=== PATIENT | female | born 1950 | race Asian ===

== ENCOUNTER 2019-01-17 11:26 | Day surgery (SDC) | payer MEDICARE, MEDICAID ==
[~2019-01-17] VITALS: Ht 152.4 cm; Wt 61.4 kg
[~2019-01-17 11:26] MED LIST: CYAN1TAB44 PO; HEPARIN SODIUM 1000 UNITS/NS 500 ML ONE; LABE100T5 PO; LIDOCAINE/PF 1% 30 ML VIAL ONE; LOVA20 PO; NIFE30TA10 PO; SODIUM CHLORIDE 0.9% 1,000 ML IV ONE
[2019-01-17 11:56] LABS: BASOPHILS % (AUTO) 0.9 % (0.0-2.0); EOSINOPHILS % (AUTO) 2.8 % (1.0-6.0); HEMATOCRIT 34.2 % (36-46); HEMOGLOBIN 11.3 g/dL (12.0-16.0); LYMPHOCYTES # (AUTO) 1.2 K/uL (1.0-4.8); LYMPHOCYTES % (AUTO) 22.3 % (22.0-44.0); MEAN CORPUSCULAR HEMOGLOBIN 31.4 pg (26.0-34.0); MEAN CORPUSCULAR HGB CONC 33.2 G/dL (31.0-37.0); MEAN CORPUSCULAR VOLUME 95 fL (80-100); MONOCYTES # (AUTO) 0.4 K/uL (0.1-1.0); MONOCYTES % (AUTO) 6.6 % (2.0-9.0); NEUTROPHILS # (AUTO) 3.6 K/uL (1.8-7.7); NEUTROPHILS % (AUTO) 67.4 % (40.0-70.0); PLATELET COUNT (AUTO) 296 K/uL (150-450); RED BLOOD CELL COUNT(AUTO) 3.62 MIL/uL (4.00-5.20)
[2019-01-17] MEDS ORDERED: SODIUM CHLORIDE 0.9% 1,000 ML IV ONE (12:00)
[2019-01-17 12:06] LABS: CALCIUM, TOTAL 8.7 mg/dL (8.8-10.5); CREATININE 4.68 mg/dL (0.60-1.30)
[2019-01-17 12:12] LABS: ALBUMIN 3.5 g/dL (3.4-5.0); BILIRUBIN,TOTAL 0.6 mg/dL (0.1-1.0); TOTAL PROTEIN, SERUM 7.3 g/dL (6.4-8.2)
== END 2019-01-17 14:35 | disposition home or self-care (01) ==
LOC: SURGERY 11:26
PROVIDERS: ATTEND Surgery
DX: I12.0 Hypertensive chronic kidney disease with stage 5 chronic kidney disease or end stage renal disease (principal); Z53.8 Procedure and treatment not carried out for other reasons; N18.5 Chronic kidney disease, stage 5; E78.00 Pure hypercholesterolemia, unspecified; D64.9 Anemia, unspecified; M19.90 Unspecified osteoarthritis, unspecified site; Z90.710 Acquired absence of both cervix and uterus; Z98.890 Other specified postprocedural states
CPT/HCPCS: 36415; 80053; 85025; 85610; 93005; J1644; J3490; J7030

== ENCOUNTER 2023-04-22 15:42 | Inpatient (IN) | payer MEDICARE, MEDICAID ==
[~2023-04-22] VITALS: Ht 154.9 cm; Wt 65.1 kg
[~2023-04-22 15:42] MED LIST changes: +ATOR20TA PO; +CHOL200059 PO; -CYAN1TAB44 PO; +FERR325T27 PO; -HEPARIN SODIUM 1000 UNITS/NS 500 ML ONE; +HYDR25TA84 PO; -LABE100T5 PO; +LABE100T8 PO; +LEVO-72 PO; -LIDOCAINE/PF 1% 30 ML VIAL ONE; -LOVA20 PO; +SEVE800 PO; -SODIUM CHLORIDE 0.9% 1,000 ML IV ONE
[2023-04-22 16:23] LABS: BASOPHILS % (AUTO) 0.5 % (0.0-2.0); EOSINOPHILS % (AUTO) 0.5 % (1.0-6.0); HEMATOCRIT 31.2 % (36-46); HEMOGLOBIN 10.3 g/dL (12.0-16.0); LYMPHOCYTES # (AUTO) 0.5 K/uL (1.0-4.8); LYMPHOCYTES % (AUTO) 5.8 % (22.0-44.0); MEAN CORPUSCULAR HEMOGLOBIN 32.7 pg (26.0-34.0); MEAN CORPUSCULAR VOLUME 99 fL (80-100); MONOCYTES # (AUTO) 0.7 K/uL (0.1-1.0); MONOCYTES % (AUTO) 7.5 % (2.0-9.0); NEUTROPHILS # (AUTO) 7.6 K/uL (1.8-7.7); PLATELET COUNT (AUTO) 189 K/uL (150-450); RED BLOOD CELL COUNT(AUTO) 3.15 MIL/uL (4.00-5.20); RED CELL DISTRIBUTION WIDTH 13.9 % (11.5-14.5); WHITE BLOOD COUNT (AUTO) 8.8 K/uL (4.5-11.0)
[2023-04-22 16:28] LABS: NEUTROPHILS % (AUTO) 85.7 % (40.0-70.0)
[2023-04-22 16:40] LABS: CALCIUM, TOTAL 9.2 mg/dL (8.8-10.5); CREATININE 4.11 mg/dL (0.60-1.30); POTASSIUM 3.5 mmol/L (3.5-5.1); PROTHROMBIN TIME 10.2 SEC (9.4-11.6)
[2023-04-22 16:56] LABS: TROPONIN I-HIGH SENSITIVITY 52 ng/L (<51)
[2023-04-22 17:04] LABS: ALBUMIN 3.2 g/dL (3.4-5.0); BILIRUBIN,TOTAL 0.5 mg/dL (0.1-1.0); TOTAL PROTEIN, SERUM 6.6 g/dL (6.4-8.2)
[2023-04-22] MEDS ORDERED: LOSA-382 PO (18:47)
[2023-04-22] MEDS ORDERED: SUCR500T PO (18:47)
[2023-04-22] MEDS ORDERED: ASPIRIN 81 MG CHEWABLE TABLET PO ONE (19:45)
[2023-04-22] MEDS ORDERED: ATORVASTATIN CALCIUM 40 MG TABLET PO ONE (19:45)
[2023-04-22] MEDS ORDERED: NITROGLYCERIN 0.4 MG SUBLINGUAL TABLET #25 SL PRN (19:45)
[2023-04-22] MEDS ORDERED: BUMETANIDE 0.25 MG/ML 4 ML VIAL IVP ONE (19:45)
[2023-04-22 20:23] LABS: APPEARANCE,URINE HAZY (CLEAR); BILIRUBIN,URINE NEGATIVE (NEGATIVE); COLOR,URINE LIGHT YELLOW (YELLOW); GLUCOSE, URINE (UA) TRACE mg/dL (NEGATIVE); KETONES,URINE NEGATIVE (NEGATIVE); LEUKOCYTE ESTERASE ,URINE LARGE (NEGATIVE); NITRATE,URINE POSITIVE (NEGATIVE); OCCULT BLOOD,URINE SMALL (NEGATIVE); PROTEIN,URINE 300-600,SEE CONFIRM mg/dL (NEGATIVE); SPECIFIC GRAVITIY, URINE 1.009 (1.003-1.030); UROBILINOGEN,URINE <=1.0 mg/dL (<=1.0)
[2023-04-22 20:45] LABS: TROPONIN I-HIGH SENSITIVITY 838 ng/L (<51)
[2023-04-22 20:47] LABS: SULFOSALICYLIC ACID,URINE 4+ (Negative)
[2023-04-22 20:48] LABS: RBC,URINE 0-2 /HPF (0-2)
[2023-04-22 20:49] LABS: WBC,URINE >100 /HPF (0-5)
[2023-04-22 20:50] LABS: BACTERIA,URINE Few /HPF (None Seen)
[2023-04-22] MEDS ORDERED: NIFEdipine 60 MG ER TABLET PO SCH (21:00)
[2023-04-22] MEDS ORDERED: LABETALOL HCL 100 MG TABLET PO SCH (21:00)
[2023-04-22] MEDS ORDERED: HEPARIN SODIUM 25000 UNITS/D5W 250 ML IV PRN (21:15)
[2023-04-22] MEDS ORDERED: ONDANSETRON HCL 4 MG/2 ML VIAL IVP PRN (21:15)
[2023-04-22] MEDS ORDERED: ACETAMINOPHEN 325 MG TABLET PO PRN (21:15)
[2023-04-22] MEDS ORDERED: HEPARIN SODIUM,PORCINE 5,000 UNITS/ML VIAL IVP PRN ×2 (21:15)
[2023-04-22] MEDS ORDERED: HEPARIN SODIUM,PORCINE 5,000 UNITS/ML VIAL IVP ONE (21:15)
[2023-04-22 21:18] VITALS: BP 139/56; PULSE 79; RESP 18; TEMP 98.4
[2023-04-22 21:48] LABS: BASOPHILS % (AUTO) 0.5 % (0.0-2.0); EOSINOPHILS % (AUTO) 0.9 % (1.0-6.0); HEMATOCRIT 32.3 % (36-46); HEMOGLOBIN 10.5 g/dL (12.0-16.0); LYMPHOCYTES # (AUTO) 0.8 K/uL (1.0-4.8); MEAN CORPUSCULAR HEMOGLOBIN 32.4 pg (26.0-34.0); MEAN CORPUSCULAR HGB CONC 32.5 G/dL (31.0-37.0); MEAN CORPUSCULAR VOLUME 100 fL (80-100); MONOCYTES # (AUTO) 0.5 K/uL (0.1-1.0); MONOCYTES % (AUTO) 6.2 % (2.0-9.0); NEUTROPHILS # (AUTO) 6.9 K/uL (1.8-7.7); NEUTROPHILS % (AUTO) 82.4 % (40.0-70.0); PLATELET COUNT (AUTO) 189 K/uL (150-450); RED BLOOD CELL COUNT(AUTO) 3.24 MIL/uL (4.00-5.20); WHITE BLOOD COUNT (AUTO) 8.3 K/uL (4.5-11.0)
[2023-04-22 22:05] LABS: PROTHROMBIN TIME 10.5 SEC (9.4-11.6)
[2023-04-22] MEDS: HydrALAZINE HCL 50 MG TABLET PO SCH (22:41)
[2023-04-22] MEDS ORDERED: SODIUM CHLORIDE 0.9% 1,000 ML ONE (23:28)
[2023-04-22] MEDS: CefTRIAXone 1 GM/DEXTROSE 50 ML IV SCH (23:31)
[2023-04-23 02:00] VITALS: BP 118/52; PULSE 70; RESP 18; TEMP 98.3
[2023-04-23 03:13] LABS: TROPONIN I-HIGH SENSITIVITY 1986 ng/L (<51)
[2023-04-23 05:58] VITALS: BP 121/52; PULSE 68; RESP 18; TEMP 98.3
[2023-04-23 06:30] LABS: BASOPHILS % (AUTO) 0.9 % (0.0-2.0); EOSINOPHILS % (AUTO) 2.7 % (1.0-6.0); HEMATOCRIT 29.5 % (36-46); HEMOGLOBIN 9.7 g/dL (12.0-16.0); LYMPHOCYTES # (AUTO) 1.2 K/uL (1.0-4.8); LYMPHOCYTES % (AUTO) 17.8 % (22.0-44.0); MEAN CORPUSCULAR HEMOGLOBIN 32.7 pg (26.0-34.0); MEAN CORPUSCULAR HGB CONC 32.8 G/dL (31.0-37.0); MEAN CORPUSCULAR VOLUME 100 fL (80-100); MONOCYTES # (AUTO) 0.5 K/uL (0.1-1.0); MONOCYTES % (AUTO) 7.9 % (2.0-9.0); NEUTROPHILS # (AUTO) 4.9 K/uL (1.8-7.7); NEUTROPHILS % (AUTO) 70.7 % (40.0-70.0); PLATELET COUNT (AUTO) 191 K/uL (150-450); RED BLOOD CELL COUNT(AUTO) 2.97 MIL/uL (4.00-5.20); WHITE BLOOD COUNT (AUTO) 6.9 K/uL (4.5-11.0)
[2023-04-23 07:40] VITALS: BP 136/55; PULSE 76; RESP 18; TEMP 98
[2023-04-23] MEDS: HydrALAZINE HCL 50 MG TABLET PO SCH ×3 (08:17→21:15)
[2023-04-23] MEDS: ASPIRIN 81 MG CHEWABLE TABLET PO SCH (08:17)
[2023-04-23] MEDS: LOSARTAN POTASSIUM 50 MG TABLET PO SCH (08:17)
[2023-04-23] MEDS: DOCUSATE SODIUM 100 MG CAPSULE PO SCH ×2 (08:17→21:14)
[2023-04-23 11:03] VITALS: BP 130/48; PULSE 75; RESP 19; TEMP 97.9
[2023-04-23 15:12] VITALS: BP 116/48; PULSE 74; RESP 18; TEMP 98.1
[2023-04-23 17:29] LABS: TROPONIN I-HIGH SENSITIVITY 1013 ng/L (<51)
[2023-04-23 20:19] VITALS: BP 131/42; PULSE 78; RESP 18; TEMP 98
[2023-04-23] MEDS ORDERED: ATORVASTATIN CALCIUM 20 MG TABLET PO SCH (21:00)
[2023-04-23] MEDS: ATORVASTATIN CALCIUM 40 MG TABLET PO SCH (21:14)
[2023-04-23] MEDS: METOPROLOL TARTRATE 25 MG TABLET PO SCH (21:16)
[2023-04-23] MEDS: CefTRIAXone 1 GM/DEXTROSE 50 ML IV SCH (21:22)
[2023-04-24 00:41] VITALS: BP 139/57; PULSE 71; RESP 18; TEMP 98
[2023-04-24 04:17] VITALS: BP 142/62; PULSE 75; RESP 18; TEMP 98.4
[2023-04-24 07:53] VITALS: BP 146/58; PULSE 76; RESP 16; TEMP 98.5
[2023-04-24] MEDS: METOPROLOL TARTRATE 25 MG TABLET PO SCH ×2 (08:18→20:48)
[2023-04-24] MEDS: HydrALAZINE HCL 50 MG TABLET PO SCH ×3 (08:18→20:48)
[2023-04-24] MEDS: LOSARTAN POTASSIUM 50 MG TABLET PO SCH (08:18)
[2023-04-24] MEDS: DOCUSATE SODIUM 100 MG CAPSULE PO SCH ×2 (08:18→20:48)
[2023-04-24] MEDS: ASPIRIN 81 MG CHEWABLE TABLET PO SCH (08:19)
[2023-04-24 08:43] LABS: TROPONIN I-HIGH SENSITIVITY 706 ng/L (<51)
[2023-04-24 11:15] VITALS: BP 131/57; PULSE 74; RESP 17; TEMP 98.4
[2023-04-24] MEDS ORDERED: NIFE-79 PO (13:47)
[2023-04-24] MEDS ORDERED: FOLI0.8T2 PO (13:47)
[2023-04-24] MEDS ORDERED: HYDR50TA37 PO (13:47)
[2023-04-24] MEDS ORDERED: GABA-529 PO (13:47)
[2023-04-24] MEDS ORDERED: CETI5TAB14 PO (13:47)
[2023-04-24] MEDS ORDERED: OMEP20CA12 PO (13:47)
[2023-04-24 15:28] VITALS: BP 150/57; PULSE 72; RESP 18; TEMP 98.5
[2023-04-24 20:10] VITALS: BP 154/66; PULSE 85; RESP 20; TEMP 98.1
[2023-04-24] MEDS: ATORVASTATIN CALCIUM 40 MG TABLET PO SCH (20:48)
[2023-04-24] MEDS: CefTRIAXone 1 GM/DEXTROSE 50 ML IV SCH (22:41)
[2023-04-25] VITALS (31 sets, daily range): BP systolic 143–213; BP diastolic 60–95; PULSE 60–85; RESP 18; TEMP 97.2–98.4
[2023-04-25] MEDS ORDERED: SODIUM BICARBONATE 50 MEQ/50 ML VIAL ONE (06:36)
[2023-04-25] MEDS ORDERED: LIDOCAINE/PF 1% 30 ML VIAL ONE (06:36)
[2023-04-25] MEDS ORDERED: VERAPAMIL HCL 2.5 MG/ML 2 ML VIAL ONE (06:36)
[2023-04-25] MEDS ORDERED: NITROGLYCERIN 50 MG/D5% WATER 250 ML ONE (06:36)
[2023-04-25] MEDS ORDERED: HEPARIN SODIUM 1000 UNITS/NS 1,000 ML ONE (06:37)
[2023-04-25] MEDS ORDERED: IOHEXOL 300 MG/ML 100 ML VIAL ONE (06:37)
[2023-04-25] MEDS ORDERED: MIDAZOLAM HCL 2 MG/2 ML VIAL ONE (07:23)
[2023-04-25] MEDS ORDERED: FentaNYL CITRATE PF 100 MCG/2 ML VIAL ONE (07:23)
[2023-04-25 07:31] LABS: CALCIUM, TOTAL 7.1 mg/dL (8.8-10.5); CREATININE 10.03 mg/dL (0.60-1.30)
[2023-04-25] MEDS ORDERED: MIDAZOLAM HCL 2 MG/2 ML VIAL IVP ONE (07:45)
[2023-04-25] MEDS ORDERED: NITROGLYCERIN/D5W 50 MG/250 ML IV BOTTLE IARTER ONE (07:45)
[2023-04-25] MEDS ORDERED: HEPARIN SODIUM,PORCINE 1,000 UNITS/ML 10 ML VIAL IARTER ONE (07:45)
[2023-04-25] MEDS ORDERED: IOHEXOL 300 MG/ML 100 ML VIAL IARTER ONE (07:45)
[2023-04-25] MEDS ORDERED: HEPARIN SODIUM 1000 UNITS/NS 1,000 ML IARTER ONE (07:45)
[2023-04-25] MEDS ORDERED: VERAPAMIL HCL 2.5 MG/ML 2 ML VIAL IARTER ONE (07:45)
[2023-04-25] MEDS ORDERED: LIDOCAINE 1% 30 ML/SOD BICARB 8.4% 4 ML SQ ONE (07:45)
[2023-04-25] MEDS ORDERED: FentaNYL CITRATE PF 100 MCG/2 ML VIAL IVP ONE (07:45)
[2023-04-25] MEDS: DOCUSATE SODIUM 100 MG CAPSULE PO SCH ×2 (08:52→20:20)
[2023-04-25] MEDS: METOPROLOL TARTRATE 25 MG TABLET PO SCH (08:52)
[2023-04-25] MEDS: ASPIRIN 81 MG CHEWABLE TABLET PO SCH (08:52)
[2023-04-25] MEDS: LOSARTAN POTASSIUM 50 MG TABLET PO SCH (08:52)
[2023-04-25] MEDS: HydrALAZINE HCL 50 MG TABLET PO SCH ×3 (08:52→20:19)
[2023-04-25] MEDS ORDERED: LABETALOL HCL 5 MG/ML 20 ML VIAL IVP PRN (14:15)
[2023-04-25] MEDS: METOPROLOL TARTRATE 50 MG TABLET PO SCH ×2 (14:18→20:19)
[2023-04-25] MEDS: FOLIC ACID/VIT B COMPLEX AND C TABLET PO SCH (16:19)
[2023-04-25] MEDS: ATORVASTATIN CALCIUM 40 MG TABLET PO SCH (20:19)
[2023-04-25] MEDS ORDERED: METOPROLOL TARTRATE 50 MG TABLET PO SCH (21:00)
[2023-04-25] MEDS: CefTRIAXone 1 GM/DEXTROSE 50 ML IV SCH (21:43)
[2023-04-26] VITALS: BP 143/61; PULSE 67; RESP 18; TEMP 98.2
[2023-04-26 04:00] VITALS: BP 145/61; PULSE 67; RESP 18; TEMP 98.2
[2023-04-26 07:31] VITALS: BP 142/64; PULSE 75; RESP 18; TEMP 98.1
[2023-04-26] MEDS: FOLIC ACID/VIT B COMPLEX AND C TABLET PO SCH (08:40)
[2023-04-26] MEDS: DOCUSATE SODIUM 100 MG CAPSULE PO SCH (08:40)
[2023-04-26] MEDS: LOSARTAN POTASSIUM 50 MG TABLET PO SCH (08:40)
[2023-04-26] MEDS: HydrALAZINE HCL 50 MG TABLET PO SCH (08:40)
[2023-04-26] MEDS: METOPROLOL TARTRATE 50 MG TABLET PO SCH (08:43)
[2023-04-26] MEDS ORDERED: APIXABAN 2.5 MG TABLET PO SCH (09:00)
[2023-04-26] MEDS ORDERED: EPOETIN ALFA 10,000 UNITS/ML VIAL SQ SCH (09:00)
[2023-04-26 11:55] VITALS: BP 138/64; PULSE 61; RESP 16; TEMP 98.4
[2023-04-26] MEDS ORDERED: APIX2.5T PO (13:16)
[2023-04-26] MEDS ORDERED: METO50 PO (13:18)
== END 2023-04-26 14:35 | disposition home or self-care (01) | DRG 280 ==
LOC: EMS 15:43 → AHU 18:40 → 5S 20:34
PROVIDERS: ADMIT Internal Medicine; ATTEND Internal Medicine
PROC: 5A1D70Z Performance of Urinary Filtration, Intermittent, Less than 6 Hours Per Day (ICD-10-PCS; principal; 2023-04-25)
PROC: 4A023N7 Measurement of Cardiac Sampling and Pressure, Left Heart, Percutaneous Approach (ICD-10-PCS; 2023-04-25)
PROC: B2111ZZ Fluoroscopy of Multiple Coronary Arteries using Low Osmolar Contrast (ICD-10-PCS; 2023-04-25)
DX: I21.4 Non-ST elevation (NSTEMI) myocardial infarction (principal); N18.6 End stage renal disease; N12 Tubulo-interstitial nephritis, not specified as acute or chronic; I12.0 Hypertensive chronic kidney disease with stage 5 chronic kidney disease or end stage renal disease; D63.8 Anemia in other chronic diseases classified elsewhere; N28.1 Cyst of kidney, acquired; I48.0 Paroxysmal atrial fibrillation; I25.110 Atherosclerotic heart disease of native coronary artery with unstable angina pectoris; E78.00 Pure hypercholesterolemia, unspecified; Z99.2 Dependence on renal dialysis; Z79.899 Other long term (current) drug therapy
CPT/HCPCS: 71045; 80048; 80053; 81001; 81002; 82550; 83880; 84484; 85025; 85610; 85730; 87040; 87086; 87186; 87340; 90935; 93005; 93306; 99285; J0696; J0885; J1644; J2250; J3010; J3490; J7030; Q9967; 36415-L1; 36415-TC; Z7610